=== PATIENT | male | born 1945 | race Caucasian/White ===

== ENCOUNTER 2016-06-12 11:42 | Emergency (ER) | payer MEDICARE ==
[~2016-06-12] VITALS: Ht 200.7 cm; Wt 161.0 kg
[2016-06-12 12:20] LABS: BASOPHILS % (AUTO) 0 % (0-2); EOSINOPHILS # (AUTO) 0.2 10^3uL; EOSINOPHILS % (AUTO) 3 % (0-4); LYMPHOCYTES # (AUTO) 0.7 X10^3; MEAN CORPUSCULAR HEMOGLOBIN 27.7 PG (26.0-34.0); MEAN CORPUSCULAR HGB CONC 32.7 g/dL (31.0-37.0); MEAN CORPUSCULAR VOLUME 85 FL (80-100); MEAN PLATELET VOLUME 9.1 FL (6.0-9.5); MONOCYTES # (AUTO) 0.6 X10^3; MONOCYTES % (AUTO) 7 % (3-11); NEUTROPHILS # (AUTO) 6.7 X10^3; NEUTROPHILS % (AUTO) 81 % (51-67); PLATELET COUNT 196 10^3uL (150-450)
[2016-06-12 12:33] LABS: ALBUMIN 3.8 g/dL (3.4-5.0); ANION GAP 13.5 MEQ/L (3-15); CALCULATED IONIZED CALCIUM 3.5 mg/dL (3.8-4.6); TOTAL PROTEIN 7.6 g/dL (6.4-8.5)
[2016-06-12 13:25] VITALS: BP 130/70
== END 2016-06-12 13:54 | disposition home or self-care (01) ==
LOC: EDUNIT# 11:42 → ED 11:44
DX: J06.9 Acute upper respiratory infection, unspecified (principal)
CPT/HCPCS: 36415; 71020; 80053; 83880; 85025; 86140; 99283; 99284

== ENCOUNTER → 2016-07-16 | Outpatient (REF) | payer MEDICARE ==
[2016-07-16 09:51] LABS: CLARITY,URINE Turbid; COLOR,URINE Orange; GLUCOSE, URINE (UA) Negative (Negative); LEUKOCYTE ESTERASE ,URINE 3+ (Negative); PH,URINE 8.5 (5.0 - 8.0)
[2016-07-16 11:37] LABS: BILIRUBIN,URINE 1+ (Negative); URINE CENTRIFUGED VOLUME 12 mL
[2016-07-16 11:38] LABS: RBC,URINE >100 /HPF
== END ==
LOC: LAB 09:21
PROVIDERS: ATTEND Family Medicine
DX: R82.99 Other abnormal findings in urine (principal)
CPT/HCPCS: 81003; 81015; 87077; 87088; 87186

== ENCOUNTER 2016-07-19 16:04 | Inpatient (IN) | payer MEDICARE ==
[~2016-07-19] VITALS: Ht 200.7 cm; Wt 159.6 kg
[2016-07-19 17:16] LABS: MEAN CORPUSCULAR HEMOGLOBIN 27.5 PG (26.0-34.0); MEAN CORPUSCULAR VOLUME 89 FL (80-100); MEAN PLATELET VOLUME 9.5 FL (6.0-9.5); PLATELET COUNT 209 10^3uL (150-450); WHITE BLOOD COUNT 8.42 10^3uL (4.0-11.0)
--- NOTE | 2016-07-19 17:18 | NUR ---
urinal PLACED FOR 2ND TIME & LEFT IN PLACE. PT STATES HIS BOTTOM "MIGUEL" & ASKS FOR SOMETHING FOR FEVER. PT SHIVERING & SHAKING. DR GUERRERO NOTIFIED. CL
[2016-07-19] MEDS ORDERED: ACETAMINOPHEN 500 MG TAB (TYLENOL) PO ONE (17:20)
[2016-07-19 17:32] LABS: ALBUMIN 3.5 g/dL (3.4-5.0); ANION GAP 14.7 MEQ/L (3-15); CALCULATED IONIZED CALCIUM 3.7 mg/dL (3.8-4.6); TOTAL PROTEIN 7.2 g/dL (6.4-8.5)
[2016-07-19 17:36] LABS: BAND NEUTROPHILS % 7 % (0-6); LYMPHOCYTES # 1.7 #; MONOCYTES # 1.1 #; MONOCYTES % 14 % (3-11); SEGMENTED NEUTROPHILS % 58 % (51-67)
[2016-07-19 17:37] LABS: EOSINOPHILS % 1 % (0-4); RBC MORPH NORMAL (NORMAL); TOTAL CELLS COUNTED 100
[2016-07-19] MEDS ORDERED: cefTRIAXone SODIUM 1,000 MG in SODIUM CHLORIDE 50 ML IV ONE (18:15)
--- NOTE | 2016-07-19 18:27 | NUR ---
TEMP RECHK = 100.9 TYMP. CL
[2016-07-19 18:34] LABS: BILIRUBIN,URINE Negative (Negative); COLOR,URINE Yellow; GLUCOSE, URINE (UA) Negative (Negative); LEUKOCYTE ESTERASE ,URINE 3+ (Negative); PH,URINE 5.5 (5.0 - 8.0); UROBILINOGEN,URINE 0.2 mg/dL (0.2-1.0)
[2016-07-19 18:44] LABS: CLARITY,URINE Slightly Cloudy
[2016-07-19 18:45] LABS: URINE CENTRIFUGED VOLUME 12 mL
--- NOTE | 2016-07-19 19:05 | NUR ---
Patient admitted to room 315 at this time. Is on 5L per OxyMask from ED, able to transfer from Cart to weight chair and bed with much assistance. Relates history to nurse and physician. Will continue to monitor.
[2016-07-19 19:15] VITALS: BP 136/77
--- NOTE | 2016-07-19 20:22 | NUR ---
Pt found lying in bed on 5 l/min Oximask. SPO2 96%, HR 88.
[2016-07-19] MEDS ORDERED: CALCIUM CARBONATE CHEWABLE 300 MG (TUMS) TABLET PO PRN (20:25)
[2016-07-19] MEDS ORDERED: MAG HYDROX/AL HYDROX/SIMETH 200-200-20/5 ML (MAG-AL PLUS) 30 ML UDC PO PRN (20:25)
[2016-07-19] MEDS ORDERED: DOCUSATE SODIUM 100 MG (COLACE) CAP PO PRN (20:25)
[2016-07-19] MEDS ORDERED: DEXTROSE ORAL GEL (GLUTOSE 40%) 15 GM TUBE PO PRN (20:25)
[2016-07-19] MEDS ORDERED: POLYETHYLENE GLYCOL 17 GM (MIRALAX) PACKET PO PRN (20:25)
[2016-07-19] MEDS ORDERED: GLUCAGON EMERGENCY 1 MG/KIT IM PRN (20:25)
[2016-07-19] MEDS ORDERED: DEXTROSE 50% 25 GM/50 ML SYRINGE IV PRN (20:25)
[2016-07-19] MEDS ORDERED: ACETAMINOPHEN 325 MG TAB (TYLENOL) PO PRN (20:25)
[2016-07-19] MEDS ORDERED: MAGNESIUM HYDROXIDE 80MG/ML (MILK OF MAGNESIA) 30 ML UDC PO PRN (20:25)
[2016-07-19] MEDS ORDERED: warFARin 5 MG (COUMADIN) TAB PO SCH (20:30)
[2016-07-19] MEDS ORDERED: BISACODYL 10 MG SUPP (DULCOLAX) PR PRN (20:30)
[2016-07-19 20:34] VITALS: BP 173/71
[2016-07-19] MEDS ORDERED: ALBUTEROL 0.083% NEB SOLUTION 2.5 MG/3 ML VIAL INH PRN (20:45)
[2016-07-19] MEDS: CLOZAPINE PO SCH (21:00)
[2016-07-19] MEDS ORDERED: INSULIN LISPRO 1 UNIT/0.01 ML (HUMALOG) DOSE SC SCH (21:00)
[2016-07-19] MEDS ORDERED: VANCOMYCIN 1,000 MG in SODIUM CHLORIDE 250 ML IV ONE (21:05)
[2016-07-19] MEDS: ALBUTEROL/IPRATROPIUM 3MG-0.5MG/3ML (DUONEB) NEB VIAL INH SCH (21:05)
[2016-07-19] MEDS ORDERED: VANCOMYCIN PHARMACY PROTOCOL IV SCH ×2 (21:05)
[2016-07-19] MEDS ORDERED: VANCOMYCIN 1000 MG VIAL ONE (21:08)
[2016-07-19] MEDS ORDERED: SODIUM CHLORIDE 250 ML ONE (21:08)
--- NOTE | 2016-07-19 21:08 | NUR ---
Pt found on 5 l/min SM while lying in bed. SPO2 96%, HR 101. RR 20 and mildly labored. BS have bilateral upper lobe fine wheezes with rhonchi throughout all lung alvarado. Pt has a strong cough and is able to clear upper airway secretions. Addendum: 07/19/16 at 2118 by Santiago Molina RT Pt still has fine wheezes in upper left lobe post Tx, Rhonchi cleared with strong cough.
--- NOTE | 2016-07-19 22:00 | NUR ---
Dr. Tong notified of critical lab value: INR 5.5. Warfarin held. Buttocks cleaned up and Mepilex placed on open areas on buttocks. Abcess to right gluteal fold cleaned with chlorhexidine and culture obtained, sent to lab. Covered with Mepilex. No needs at this time. Will continue to monitor.
[2016-07-19 23:58] VITALS: BP 119/65
[2016-07-20 04:12] VITALS: BP 123/63
[2016-07-20] MEDS ORDERED: SODIUM CHLORIDE 100 ML ONE (05:10)
[2016-07-20] MEDS ORDERED: PIPERACILLIN/TAZOBACTAM 3.375 GM (ZOSYN) VIAL IV ONE (05:10)
[2016-07-20] MEDS: PIPERACILLIN/TAZOBACTAM 3.375 GM in SODIUM CHLORIDE 100 ML IV SCH ×3 (05:20→21:27)
[2016-07-20 06:20] LABS: BASOPHILS % (AUTO) 1 % (0-2); EOSINOPHILS # (AUTO) 0.2 10^3uL; EOSINOPHILS % (AUTO) 3 % (0-4); LYMPHOCYTES # (AUTO) 1.4 X10^3; MEAN CORPUSCULAR HEMOGLOBIN 27.4 PG (26.0-34.0); MEAN CORPUSCULAR VOLUME 88 FL (80-100); MONOCYTES # (AUTO) 1.1 X10^3; MONOCYTES % (AUTO) 14 % (3-11); NEUTROPHILS # (AUTO) 5.1 X10^3; NEUTROPHILS % (AUTO) 64 % (51-67); PLATELET COUNT 200 10^3uL (150-450); WHITE BLOOD COUNT 7.89 10^3uL (4.0-11.0)
[2016-07-20 06:25] LABS: MEAN CORPUSCULAR HGB CONC 31.2 g/dL (31.0-37.0)
--- NOTE | 2016-07-20 06:28 | NUR ---
Patient rests in bed throughout night without needs. IV running without difficulties. No needs at this time.
[2016-07-20 06:38] LABS: ALBUMIN 3.3 g/dL (3.4-5.0); ANION GAP 8.6 MEQ/L (3-15); PHOSPHORUS 3.2 mg/dL (2.4-4.9)
[2016-07-20 07:41] VITALS: BP 125/64
[2016-07-20] MEDS: ALBUTEROL/IPRATROPIUM 3MG-0.5MG/3ML (DUONEB) NEB VIAL INH SCH ×4 (08:01→20:05)
--- NOTE | 2016-07-20 08:02 | NUR ---
MED REC COMPLETE--current med list obtained from list provided by [facility]
[2016-07-20] MEDS ORDERED: NS FLUSH 3 ML PRN IV (08:10)
--- NOTE | 2016-07-20 08:15 | NUR ---
NUTRITION ASSESSMENT Level 1 Patient: Vlad Benitez Age/Sex: 70/M Date Screened: 07-20-16 Weight: 355.9#/161.8 kg Height: 79 inches Primary Diagnosis: SIRS/sepsis, UTI Diet Order: regular, honey-thick liquids Relevant labs: stool occult blood (-), glucose 166 Food allergies: N Nutrition Assessment Criteria Age over 80: N Body Mass Index (BMI) under 19: N Admission Screening Indicates Risk? 6 points Moderate/High Risk Diagnosis: 3 points TPN or PPN: N NPO or clear liquid diet: N Serum Glucose <70 or >180: N Hgb A1c >6.7: N/A Total: 9 points Risk Screen: __ Patient at low nutritional risk based on available data; reevaluate in 5-7 days __ Patient at moderate nutritional risk based on available data; reevaluate in 3-5 days _X_ Patient at high nutritional risk; complete Nutrition Assessment within 48 hours of admission.
--- NOTE | 2016-07-20 08:15 | NUR ---
Vancomycin Dosing: Pharmacy managed S: SIRS/Sepsis: Attributed to UTI / gluteal fold cellulitis. Cultures pending. NH resident. Treating with Pip/Tazo & Vancomycin. O: 70y/o M, wt = 162 kg, SCr = 1.75 CrCl = 66 ml/min A/P: Vancomycin 1000mg IV initially. Vancomycin 2gm IV q18h with predicted trough of 14.7 mcg/mL for therapeutic goal of 15-20mcg/ml. Trough to be drawn before 5th dose (07-23-16@ 0930). Will monitor and adjust if needed.
[2016-07-20] MEDS ORDERED: PHYTONADIONE 10 MG/ML SC ONE (08:35)
[2016-07-20] MEDS ORDERED: ENOXAPARIN 40 MG/0.4 ML (LOVENOX) SYR SC SCH (09:00)
[2016-07-20] MEDS: NS FLUSH 3 ML DAILY IV SCH (09:00)
[2016-07-20] MEDS: meTOprolol TARTRATE 25 MG (LOPRESSOR) TABLET PO SCH ×2 (09:36→18:12)
[2016-07-20] MEDS: FINASTERIDE (PROSCAR) 5 MG TAB PO SCH (09:36)
[2016-07-20] MEDS: WARFARIN MONITORING XX SCH (09:37)
[2016-07-20] MEDS: PANTOPRAZOLE 40 MG (PROTONIX) TAB PO SCH (09:37)
[2016-07-20] MEDS: BETHANECHOL 25 MG (URECHOLINE) TAB PO SCH ×3 (09:37→18:12)
[2016-07-20] MEDS: TAMSULOSIN 0.4 MG (FLOMAX) CAP PO SCH (09:37)
[2016-07-20] MEDS: VANCOMYCIN 2000 MG in NS IV 480 ML IV SCH (09:43)
[2016-07-20] MEDS: VANCOMYCIN COMPOUNDED BY PHARMACY IV SCH (09:43)
--- NOTE | 2016-07-20 10:15 | NUR ---
O2 sat. has been 96-97% on 5 liters NC. Weaned O2 to 3 liters. Will recheck sat.
--- NOTE | 2016-07-20 10:45 | NUR ---
O2 sat.= 96% on 3 liters NC. Weaned O2 to 2 liters. Will continue to monitor.
--- NOTE | 2016-07-20 11:30 | NUR ---
O2 sat.= 97% on 2 liters NC.
[2016-07-20 11:41] VITALS: BP 116/63
--- NOTE | 2016-07-20 12:15 | NUR ---
Weaned patient to room air. Will recheck sat.
--- NOTE | 2016-07-20 12:40 | NUR ---
O2 sat.= 92% on room air. Instructed patient to call for shortness of breath.
--- NOTE | 2016-07-20 13:48 | NUR ---
NUTRITION ASSESSMENT Level II Patient: Vlad Benitez Age/Sex: 70/M Date Assessed: 07-20-16 ASSESSMENT Pertinent History: Patient admitted with SIRS/sepsis and UTI, and screened at high nutritional risk secondary to skin breakdown and hx. aspiration pneumonia. PMHx includes BPH, GERD, COPD, constipation, schizophrenia, seizure disorder, mild cognitive impairment, stroke, hx falls, ataxia, aspiration pneumonia, and kidney stones. He is disabled due to schizophrenia and cognitive impairment, and lives at [facility]. Skin breakdown noted on buttocks, stage 2 pressure ulcer, as well as necrotic ulcer on right great toe. Pt. has been gaining weight over the past year: 308# in 2015, 353# in 2015, and 354# in 2016. He has a history of needing mechanical soft diet. Meds/Nutrition: Protonix, NS Weight: 355.9#/161.8 kg Height: 79 inches Body Mass Index (BMI): 40.2 [place] Body Weight : 208#/94.5 kg % IBW: 171% GASTROINTESTINAL Appetite: good, eating 100% Diet Order: regular, honey-thick liquids Unintentional loss of >10 lbs. in 3 months: N Difficult to chew/swallow: Yes Diabetes: N Relevant Labs: stool occult blood (-), glucose 166 Calculations for Nutritional Assessment Estimated calorie needs: 22-25 kcals/kg = 3,500 (minus 500 for weight loss) Estimated protein needs: 1.0-1.2 g/kg ABW protein = 111-133 g./day protein DIAGNOSIS 1. Nutrition Diagnosis: Increased protein needs related to skin breakdown and SIRs/sepsis as evidenced by diagnosis and stage 2 PU to buttocks with breakdown on toe. NUTRITIONAL INTERVENTION Goal: Patient will receive adequate nutrition to meet his needs. Plan: Will provide regular diet with HT liquids as ordered, and monitor intake for adequacy. Will alter menus to provide minimum 111 g. protein/day as calculated above, and adjust as needed. Will closely monitor chewing/swallow ability to see if he needs altered texture for solid foods. Will also monitor glucose; noted it was elevated at 166 this morning but pt. does not have diabetes dx. MONITORING & EVALUATION _X_ Monitor patients menu selections _X_ Monitor patients food intake per nursing notes __ Monitor NPO/clear liquid days _X_ Monitor lab values __ Monitor I&O _X_ Other--monitor skin breakdown
[2016-07-20 16:00] VITALS: BP 119/72
--- NOTE | 2016-07-20 16:00 | NUR ---
O2 sat. has remained in the 90's on room air.
--- NOTE | 2016-07-20 17:30 | NUR ---
Yohana WASHINGTON at [facility] reports the patient only wears O2 2 liters at .
--- NOTE | 2016-07-20 18:53 | NUR ---
Patient is able to get up with assist of two but transfers are difficult. He is strong enough to ambulate once on his feet although unsteady. The main difficulty is rising from chair to standing or bed to standing.
--- NOTE | 2016-07-20 20:07 | NUR ---
Pt found sitting in his chair on RA, SPO2 92%, HR 77, RR 18 and non labored. BS essentially clear before and after Duoneb via SVN. Pt wears 2 l/min NC at night which he puts on at 2100 hrs.
[2016-07-20 20:14] VITALS: BP 124/63
--- NOTE | 2016-07-20 20:18 | NUR ---
Pt in bed, placed on 2 l/min NC.
[2016-07-20] MEDS: CLOZAPINE PO SCH (21:28)
[2016-07-21 00:11] VITALS: BP 118/65
[2016-07-21] MEDS: VANCOMYCIN 2000 MG in NS IV 480 ML IV SCH ×2 (03:40→20:56)
[2016-07-21] MEDS: VANCOMYCIN COMPOUNDED BY PHARMACY IV SCH ×2 (03:40→21:18)
[2016-07-21] MEDS: NS FLUSH 10 ML PRN IV (05:37)
[2016-07-21 05:54] VITALS: BP 131/73
[2016-07-21 06:04] LABS: BASOPHILS % (AUTO) 1 % (0-2); EOSINOPHILS # (AUTO) 0.4 10^3uL; EOSINOPHILS % (AUTO) 6 % (0-4); LYMPHOCYTES # (AUTO) 1.8 X10^3; MEAN CORPUSCULAR VOLUME 89 FL (80-100); MEAN PLATELET VOLUME 9.2 FL (6.0-9.5); MONOCYTES # (AUTO) 0.8 X10^3; MONOCYTES % (AUTO) 10 % (3-11); NEUTROPHILS # (AUTO) 4.8 X10^3; NEUTROPHILS % (AUTO) 60 % (51-67); PLATELET COUNT 200 10^3uL (150-450); WHITE BLOOD COUNT 7.91 10^3uL (4.0-11.0)
[2016-07-21 06:28] LABS: MEAN CORPUSCULAR HGB CONC 30.4 g/dL (31.0-37.0)
[2016-07-21] MEDS: PIPERACILLIN/TAZOBACTAM 3.375 GM in SODIUM CHLORIDE 100 ML IV SCH ×3 (06:39→20:56)
[2016-07-21 06:50] LABS: ALBUMIN 3.1 g/dL (3.4-5.0); ANION GAP 11.8 MEQ/L (3-15); PHOSPHORUS 3.5 mg/dL (2.4-4.9)
[2016-07-21] MEDS: ALBUTEROL/IPRATROPIUM 3MG-0.5MG/3ML (DUONEB) NEB VIAL INH SCH ×4 (07:31→20:03)
[2016-07-21 07:42] VITALS: BP 117/59
--- NOTE | 2016-07-21 07:43 | NUR ---
Pt resting in bed with eyes closed. remains on 2L nc. resp even nonlab. NS@100ml/hr infusing concurrent with Zosyn @25ml/hr into 22g LBH without difficulty. Size-guerra mattress in place. Pt calls appropriately at this time for assist in using urinal. bed alarm turned on.
[2016-07-21] MEDS: meTOprolol TARTRATE 25 MG (LOPRESSOR) TABLET PO SCH ×2 (08:38→18:01)
[2016-07-21] MEDS: FINASTERIDE (PROSCAR) 5 MG TAB PO SCH (08:39)
[2016-07-21] MEDS: BETHANECHOL 25 MG (URECHOLINE) TAB PO SCH ×3 (08:39→18:01)
[2016-07-21] MEDS: PANTOPRAZOLE 40 MG (PROTONIX) TAB PO SCH (08:39)
[2016-07-21] MEDS: NS FLUSH 3 ML DAILY IV SCH ×2 (08:41→20:56)
[2016-07-21] MEDS: WARFARIN MONITORING XX SCH (08:41)
[2016-07-21] MEDS: TAMSULOSIN 0.4 MG (FLOMAX) CAP PO SCH (09:54)
--- NOTE | 2016-07-21 10:27 | NUR ---
This nurse attempted a second IV start for Vanco infusion- unsuccessful- will call ICU nurse to look for site. Pt tolerated without c/o.
--- NOTE | 2016-07-21 11:30 | NUR ---
O2 titrated to RA at this time- O2 sats 97%on 2L nc. At MT he wear 2L at noc, RA during day. Will cont to monitor O2 sats. Pilar LANGSTON notified.
[2016-07-21 11:44] VITALS: BP 106/55
--- NOTE | 2016-07-21 12:15 | NUR ---
O2 sats 94% RA. will cont to monitor.
--- NOTE | 2016-07-21 14:30 | NUR ---
Kiki Nash started 2 IVs- 22g Lt wrist. 20g Rt wrist.
--- NOTE | 2016-07-21 14:40 | NUR ---
MULTIDISCIPLINARY MTG/DR. WALTER: Pt. admitted with SIRS/Sepsis, pneumonia and complicated UTI that had been diagnosed prior to hospitalization. Pt. also had cellulitis on the buttocks with an abscess. Pt. is not complaining of a lot of pain. Pt. is receiving broad spectrum antibiotics. Will put Pt. on MRSA isolation precautions due to culture results. Pt. is a resident of [facility]. No discharge needs identified at this time.
[2016-07-21 16:13] VITALS: BP 110/58
--- NOTE | 2016-07-21 18:39 | NUR ---
Pt sitting up in chair, watching tv. Zosyn infusing without difficulty.
--- NOTE | 2016-07-21 19:30 | NUR ---
Pt is resting in recliner watching tv, alert and oriented x3, Resp are even and nonlabored, LCTAB, HRRR, BS are active x 4 quadrants. Pt denies pain or discomfort at this time. SL is patent, no redness, swelling, or s/s of infection noted at this time. Pt continues in isolation precautions for positive staph aureus. Dressing is over abscess to rectum, and stage 2 to coccyx. Call light is in reach, will continue to monitor.
[2016-07-21 19:42] VITALS: BP 117/70
--- NOTE | 2016-07-21 20:08 | NUR ---
Pt found sitting in his chair on RA, SPO2 93%, HR 76, RR 18 and non labored. BS coarse rhonchi throughout all lung alvarado that clear with a coached cough, clear after cough. Duoneb given via SVN/MASK tolerated well with clear BS post Tx.
[2016-07-21] MEDS ORDERED: INSULIN DETEMIR 1 UNIT/0.01 ML (LEVEMIR) DOSE SC ONE (20:54)
[2016-07-21] MEDS: CLOZAPINE PO SCH (20:56)
[2016-07-22 00:16] VITALS: BP 130/68
[2016-07-22 03:44] VITALS: BP 110/70
--- NOTE | 2016-07-22 04:40 | NUR ---
Pt has been resting in bed asleep most of this shift, currently on 2LPM O2 while asleep, call light is in reach, will continue to monitor.
[2016-07-22] MEDS: PIPERACILLIN/TAZOBACTAM 3.375 GM in SODIUM CHLORIDE 100 ML IV SCH (05:56)
[2016-07-22 06:14] LABS: ALBUMIN 3.2 g/dL (3.4-5.0); ANION GAP 10.8 MEQ/L (3-15); MAGNESIUM* 2.1 mg/dL (1.6-2.3); PHOSPHORUS 3.2 mg/dL (2.4-4.9)
--- NOTE | 2016-07-22 07:35 | NUR ---
O2 titrated to RA- Sats 92% RA. Resp even, nonlab. Pt up in chair for bfst meal. SL x2 intact. Zosyn infusing as ordered. Call light within reach- calls appropriately for assist- has only needed 1 assist overnight and this AM. Will cont to monitor patient.
[2016-07-22 07:38] VITALS: BP 124/64
[2016-07-22] MEDS: ALBUTEROL/IPRATROPIUM 3MG-0.5MG/3ML (DUONEB) NEB VIAL INH SCH ×4 (07:40→20:27)
[2016-07-22] MEDS: FINASTERIDE (PROSCAR) 5 MG TAB PO SCH (08:36)
[2016-07-22] MEDS: PANTOPRAZOLE 40 MG (PROTONIX) TAB PO SCH (08:36)
[2016-07-22] MEDS: BETHANECHOL 25 MG (URECHOLINE) TAB PO SCH ×3 (08:36→16:57)
[2016-07-22] MEDS: meTOprolol TARTRATE 25 MG (LOPRESSOR) TABLET PO SCH ×2 (08:36→16:57)
[2016-07-22] MEDS: WARFARIN MONITORING XX SCH (08:37)
[2016-07-22] MEDS: TAMSULOSIN 0.4 MG (FLOMAX) CAP PO SCH (09:26)
--- NOTE | 2016-07-22 10:00 | NUR ---
Pt ambulated to shower from room, assisted x1 in shower, then brought back to room via shower chair. IV SL at this time. IV SL x2 in place.
[2016-07-22 11:21] VITALS: BP 128/62
[2016-07-22] MEDS: VANCOMYCIN 2000 MG in NS IV 480 ML IV SCH (15:56)
[2016-07-22] MEDS: VANCOMYCIN COMPOUNDED BY PHARMACY IV SCH (16:00)
[2016-07-22 16:15] VITALS: BP 119/60
--- NOTE | 2016-07-22 16:17 | NUR ---
Brennan Valdovinos CRNA at bedside for PICC line placement.
--- NOTE | 2016-07-22 17:22 | NUR ---
Exp. crackles bilaterally, good cough to clear upper airway. O2 off during the day, 94%.
[2016-07-22 19:56] VITALS: BP 117/70
--- NOTE | 2016-07-22 20:29 | NUR ---
Pt found reclining in his chair, SPO2 93% on RA, HR 72, RR 16 and non labored. Pt has coarse crackles that clear with coached cough, otherwise clear BS before and after Duoneb via SVN. O2 @ 2 l/min NC set up for HS.
[2016-07-22] MEDS ORDERED: cefTRIAXone SODIUM 1,000 MG in SODIUM CHLORIDE 50 ML IV SCH (21:00)
[2016-07-22] MEDS: CLOZAPINE PO SCH (21:11)
[2016-07-22] MEDS ORDERED: SODIUM CHLORIDE 250 ML ONE (21:18)
[2016-07-23 00:20] VITALS: BP 128/62
[2016-07-23 04:00] VITALS: BP 120/68
--- NOTE | 2016-07-23 04:00 | NUR ---
Pt is resting in bed asleep, does not appear in pain or discomfort at this time, call light is in reach, will continue to monitor.
[2016-07-23 08:14] VITALS: BP 126/62
[2016-07-23] MEDS: ALBUTEROL/IPRATROPIUM 3MG-0.5MG/3ML (DUONEB) NEB VIAL INH SCH ×2 (08:40→12:24)
[2016-07-23] MEDS: meTOprolol TARTRATE 25 MG (LOPRESSOR) TABLET PO SCH (08:55)
[2016-07-23] MEDS: NS FLUSH 3 ML DAILY IV SCH ×2 (08:56→10:15)
[2016-07-23] MEDS: PANTOPRAZOLE 40 MG (PROTONIX) TAB PO SCH (08:56)
[2016-07-23] MEDS: FINASTERIDE (PROSCAR) 5 MG TAB PO SCH (08:56)
[2016-07-23] MEDS: BETHANECHOL 25 MG (URECHOLINE) TAB PO SCH ×2 (08:56→13:01)
[2016-07-23] MEDS ORDERED: cefTRIAXone 1 GM (ROCEPHIN) VIAL IM SCH (09:00)
[2016-07-23] MEDS: WARFARIN MONITORING XX SCH (09:00)
[2016-07-23] MEDS: VANCOMYCIN 2000 MG in NS IV 480 ML IV SCH (10:14)
[2016-07-23] MEDS: NS FLUSH 10 ML PRN IV (10:14)
[2016-07-23] MEDS: TAMSULOSIN 0.4 MG (FLOMAX) CAP PO SCH (10:14)
[2016-07-23] MEDS: VANCOMYCIN COMPOUNDED BY PHARMACY IV SCH (10:25)
[2016-07-23 11:52] VITALS: BP 122/62
--- NOTE | 2016-07-24 07:00 | NUR ---
PT UP IN RECLINER CHAIR, FEET ELEV, RESTING WELL WITH EYES CLOSED, RESP REG/NONLABORED, CALL LIGHT IN REACH.
--- NOTE | 2016-07-24 10:30 | NUR ---
PT HAS TAKEN PO MEDS WITHOUT PROBLEMS SWALLOWING, HAS BEEN ALERT & APPROPRIATE RESPONSIVE TO THIS NURSE. IVL X2 INTACT, #22 IN LEFT WRIST, #20 IN RIGHT WRIST, BOTH ARE CLEAR & WITHOUT REDNESS/EDEMA, VANCO INFUSING IN R WRIST. Addendum: 07/24/16 at 1129 by Lawanda Good RN WRONG CHART
== END 2016-07-23 13:00 | disposition swing bed (61) | DRG 871 ==
LOC: ED 16:06 → MED/SURG 18:36
PROVIDERS: ADMIT Internal Medicine; ATTEND Internal Medicine
DX: A41.9 Sepsis, unspecified organism (principal); J15.212 Pneumonia due to Methicillin resistant Staphylococcus aureus; N39.0 Urinary tract infection, site not specified; L02.31 Cutaneous abscess of buttock; N17.9 Acute kidney failure, unspecified; D68.32 Hemorrhagic disorder due to extrinsic circulating anticoagulants; J44.0 Chronic obstructive pulmonary disease with (acute) lower respiratory infection; K92.1 Melena; E86.0 Dehydration; R33.8 Other retention of urine; I10 Essential (primary) hypertension; T45.515A Adverse effect of anticoagulants, initial encounter; Z79.01 Long term (current) use of anticoagulants; Z86.711 Personal history of pulmonary embolism
CPT/HCPCS: 36415; 71020; 80053; 80069; 80202; 81003; 81015; 83605; 83690; 83735; 85025; 85610; 86140; 87040; 87070; 87088; 87147; 87186; 87205; 93922; 94640; 94760; 96361; 96365; 99282; 99285

== ENCOUNTER 2016-07-23 13:05 | Inpatient (IN) | payer MEDICARE ==
--- NOTE | 2016-07-23 13:15 | NUR ---
PT'S STATUS CHANGED TO SWB, PT IS ALERT/ORIENT, WEAK BUT ABLE TO TRANSFER WITH MOD ASSIST X1, SKIN PALE, W/D, LSCTA, HEART REGULAR, 3+ EDEMA BILAT LOWER EXT FROM TOES TO KNEES, TEDS ON AT THIS TIME. PT USES CALL LIGHT FOR ASSIST. PT INCONT OF URINE. PT REPORTS NO BM YESTERDAY OR TODAY, BOWEL SOUNDS PRESENT.
[2016-07-23] MEDS ORDERED: POLYETHYLENE GLYCOL 17 GM (MIRALAX) PACKET PO PRN (13:35)
[2016-07-23] MEDS ORDERED: MAG HYDROX/AL HYDROX/SIMETH 200-200-20/5 ML (MAG-AL PLUS) 30 ML UDC PO PRN (13:35)
[2016-07-23] MEDS ORDERED: ACETAMINOPHEN 325 MG TAB (TYLENOL) PO PRN (13:35)
[2016-07-23] MEDS ORDERED: MAGNESIUM HYDROXIDE 80MG/ML (MILK OF MAGNESIA) 30 ML UDC PO PRN (13:35)
[2016-07-23] MEDS ORDERED: VANCOMYCIN PHARMACY PROTOCOL IV SCH (13:35)
[2016-07-23] MEDS ORDERED: BISACODYL 10 MG SUPP (DULCOLAX) PR PRN (13:35)
[2016-07-23] MEDS ORDERED: SODIUM CHLORIDE FLUSH 10 ML SYR IV PRN (13:35)
[2016-07-23] MEDS ORDERED: CALCIUM CARBONATE CHEWABLE 300 MG (TUMS) TABLET PO PRN (13:35)
[2016-07-23] MEDS ORDERED: ALBUTEROL 0.083% NEB SOLUTION 2.5 MG/3 ML VIAL INH PRN (13:35)
[2016-07-23] MEDS ORDERED: GLUCAGON EMERGENCY 1 MG/KIT IM PRN (13:35)
--- NOTE | 2016-07-23 15:30 | NUR ---
Vancomycin Dosing: Pharmacy managed S: SIRS/Sepsis: Attributed to UTI / gluteal fold cellulitis. NH resident. O: 70y/o M, wt = 162 kg, SCr = 1.47 CrCl = 79 ml/min, CRP 8.7 mg/dL, sputum cx and wound cx positive for MRSA, blood cx negative to date, vanco trough 17.7 mcg/mL A/P: Contine vancomycin 2gm IV q18h to maintain therapeutic goal of 15-20mcg/ml. Next trough to be drawn before 07-26-16@ 0930. Will monitor and adjust if needed.
[2016-07-23] MEDS: ALBUTEROL/IPRATROPIUM 3MG-0.5MG/3ML (DUONEB) NEB VIAL INH SCH ×2 (16:00→19:35)
[2016-07-23] MEDS: warFARin 5 MG (COUMADIN) TAB PO SCH (16:26)
[2016-07-23] MEDS: meTOprolol TARTRATE 25 MG (LOPRESSOR) TABLET PO SCH (17:53)
[2016-07-23] MEDS: BETHANECHOL 25 MG (URECHOLINE) TAB PO SCH (17:53)
--- NOTE | 2016-07-23 18:20 | NUR ---
PT STS HE DID HAVE A BM YESTERDAY, REPORTED TO THIS NURSE EARLIER HE HAD NOT HAD A BM FOR 2 DAY, MRAIANA PROVIDED.
--- NOTE | 2016-07-23 19:15 | NUR ---
Pt is sitting up in recliner watching tv and visiting with his sister. Alert and oriented x 4, Resp are even and nonlabored, LCTAB, HRRR, BS are active x 4 quadrants. Pt is senior care for infection to right rectal abscess. SL to Right Wrist and Left Wrist are patent, no redness, swelling, or s/s of infection noted at this time. Denies pain or discomfort at this time. Call light is in reach, will continue to monitor.
--- NOTE | 2016-07-23 19:37 | NUR ---
Pt found sitting in his chair on RA, SPO2 89%, HR 81, RR 81. BS clear before and after Duoneb via SVN. Placed on 2 l/min NC for noc.
[2016-07-23] MEDS: HOME MEDICATION PO SCH (20:45)
[2016-07-23] MEDS: cefTRIAXone SODIUM 1,000 MG in SODIUM CHLORIDE 50 ML IV SCH (20:45)
[2016-07-24 00:35] VITALS: BP 119/64
--- NOTE | 2016-07-24 04:15 | NUR ---
Pt is resting in bed asleep, does not appear in pain or discomfort at this time, call light is in reach, will continue to monitor.
[2016-07-24] MEDS: NS IV SCH ×2 (04:58→20:42)
[2016-07-24] MEDS: VANCOMYCIN IV SCH ×2 (04:58→20:42)
[2016-07-24] MEDS: COMPOUNDED BY PHARMACY IV SCH ×2 (04:58→21:19)
[2016-07-24 08:00] VITALS: BP 122/64
--- NOTE | 2016-07-24 08:30 | NUR ---
PT RETURNS FROM SHOWER, BOTTOM CLEAN, DECUB NOTED ON L BUTTOCK, UNABLE TO VISUALIZE ABSCESS, SQUARE MEPILEX APPLIED TO GLUTEAL CREASE, SMALL MEPILEX APPLIED TO R BUTTOCK. PT TO RECLINER CHAIR FOR MORNING MEAL.
--- NOTE | 2016-07-24 08:45 | NUR ---
PT NOTED TO BE COUGHING FREQUENTLY, REPORTS HE SWALLOWED A BITE OF EGG WRONG, WILL MONITOR
[2016-07-24] MEDS: BETHANECHOL 25 MG (URECHOLINE) TAB PO SCH ×3 (08:53→17:31)
[2016-07-24] MEDS: meTOprolol TARTRATE 25 MG (LOPRESSOR) TABLET PO SCH ×2 (08:53→17:31)
[2016-07-24] MEDS: FINASTERIDE (PROSCAR) 5 MG TAB PO SCH (08:54)
[2016-07-24] MEDS: PANTOPRAZOLE 40 MG (PROTONIX) TAB PO SCH (08:54)
[2016-07-24] MEDS: WARFARIN MONITORING XX SCH (08:55)
[2016-07-24] MEDS: ALBUTEROL/IPRATROPIUM 3MG-0.5MG/3ML (DUONEB) NEB VIAL INH SCH ×4 (09:10→20:15)
--- NOTE | 2016-07-24 10:00 | NUR ---
PT RESTING IN RECLINER, NO FURTHER COUGHING, TAKES PO MED WELL. CALL LIGHT IN REACH.
[2016-07-24] MEDS: TAMSULOSIN 0.4 MG (FLOMAX) CAP PO SCH (10:50)
--- NOTE | 2016-07-24 12:30 | NUR ---
PT FEEDING SELF IN RECLINER CHAIR, THIS NURSE ASSISTED WITH CUTTING MEAT, OTHERWISE PT IS INDEPENDENT WITH FEEDING. DENIES C/O OR NEEDS.
--- NOTE | 2016-07-24 13:45 | NUR ---
PT ASSISTED X2 MAX ASSIST TO BED; PT NEEDS ASSIST WITH [id number], ABLE TO TAKE SHUFFLE STEPS TO BED WITH WALKER/GAIT BELT/NURSE ASSIST X2. PT'S GAIT FEELS UNSTEADY. SR UP, CALL LIGHT IN REACH.
--- NOTE | 2016-07-24 17:00 | NUR ---
PT UP TO CHAIR FOR MIRANDA MEAL, PT INCONT OF LG AMOUNT OF URINE, SKIN WET, THIS NURSE CONCERNED ABOUT INTEGRITY OF SKIN WITH CONSTANT MOISTURE PRESENT, PT'S THIGHS ARE TIGHTLY TOGETHER & IT IS DIFFICULT WITH PT EITHER LYING OR STANDING TO THOROUGHLY ASSESS PERINEAL AREA FOR SKIN ISSUES, SKIN BARRIER APPLIED THOROUGHLY POSSIBLE, UNABLE TO SEE ANY ABSESS AT GLUTEAL FOLD REPORTED BY NURSE REPORT, ROUNDED LINEAR LINE NOTED ON RIGHT, WHICH APPEARS HEALED, NO DRAINAGE NOTED.
[2016-07-24] MEDS: warFARin 5 MG (COUMADIN) TAB PO SCH (17:32)
--- NOTE | 2016-07-24 19:15 | NUR ---
Pt is sitting up in recliner watching tv. Alert and oriented x 4, Resp are even and nonlabored, LCTAB, HRRR, BS are active x 4 quadrants. Pt is snf for infection to right rectal abscess. SL to Right Wrist and Left Wrist are patent, no redness, swelling, or s/s of infection noted at this time. Denies pain or discomfort at this time. Call light is in reach, will continue to monitor.
--- NOTE | 2016-07-24 20:20 | NUR ---
Placed pt on 2L NC post breathing tx, per order, pt SPO2 95% on room air. Pt is sleeping, does not appear to be in any distress.
[2016-07-24] MEDS: HOME MEDICATION PO SCH (20:41)
[2016-07-24] MEDS: cefTRIAXone SODIUM 1,000 MG in SODIUM CHLORIDE 50 ML IV SCH (20:42)
[2016-07-25 00:02] VITALS: BP 130/70
--- NOTE | 2016-07-25 03:45 | NUR ---
Pt is resting in bed asleep, does not appear in pain or discomfort at this time, call light is in reach, will continue to monitor.
[2016-07-25 06:04] LABS: BASOPHILS % (AUTO) 0 % (0-2); EOSINOPHILS # (AUTO) 0.4 10^3uL; EOSINOPHILS % (AUTO) 3 % (0-4); LYMPHOCYTES # (AUTO) 2.2 X10^3; MEAN CORPUSCULAR VOLUME 88 FL (80-100); MEAN PLATELET VOLUME 9.2 FL (6.0-9.5); MONOCYTES # (AUTO) 1.2 X10^3; MONOCYTES % (AUTO) 9 % (3-11); NEUTROPHILS # (AUTO) 8.5 X10^3; NEUTROPHILS % (AUTO) 69 % (51-67); PLATELET COUNT 224 10^3uL (150-450); WHITE BLOOD COUNT 12.36 10^3uL (4.0-11.0)
[2016-07-25 06:06] LABS: MEAN CORPUSCULAR HEMOGLOBIN 26.9 PG (26.0-34.0); MEAN CORPUSCULAR HGB CONC 30.7 g/dL (31.0-37.0)
[2016-07-25 06:28] LABS: ALBUMIN 2.9 g/dL (3.4-5.0); ANION GAP 13.1 MEQ/L (3-15); TOTAL PROTEIN 6.4 g/dL (6.4-8.5)
[2016-07-25] MEDS: ALBUTEROL/IPRATROPIUM 3MG-0.5MG/3ML (DUONEB) NEB VIAL INH SCH ×4 (08:44→20:11)
[2016-07-25 08:50] VITALS: BP 110/64
[2016-07-25] MEDS: FINASTERIDE (PROSCAR) 5 MG TAB PO SCH (09:50)
[2016-07-25] MEDS: PANTOPRAZOLE 40 MG (PROTONIX) TAB PO SCH (09:50)
[2016-07-25] MEDS: DOCUSATE SODIUM 100 MG (COLACE) CAP PO PRN (09:50)
[2016-07-25] MEDS: meTOprolol TARTRATE 25 MG (LOPRESSOR) TABLET PO SCH ×2 (09:50→18:08)
[2016-07-25] MEDS: BETHANECHOL 25 MG (URECHOLINE) TAB PO SCH ×3 (09:50→18:08)
[2016-07-25] MEDS: TAMSULOSIN 0.4 MG (FLOMAX) CAP PO SCH (09:50)
[2016-07-25] MEDS: WARFARIN MONITORING XX SCH (09:51)
--- NOTE | 2016-07-25 10:07 | NUR ---
Nutrition Follow Up: Patient is eating 100% at most meals; his diet on skilled care continues as Regular with honey-thick liquids. Weight today: 347.1#/157.8 kg--this is down 8.8# in the past 5 days Labs: glucose 135 1. No changes recommended at this time; continue regular diet with thickened liquids per physician order. Will monitor intake for adequacy and reassess as needed.
--- NOTE | 2016-07-25 12:00 | NUR ---
Mepilex dressings changed on buttocks.
--- NOTE | 2016-07-25 12:47 | NUR ---
MULTIDISCIPLINARY MTG/DR. ROSSI: Pt. admitted to swing bed on Monday. Pt. receiving IV antibiotics. He has received 7 days so far. Will stop the Rocephin. Pt. has been up walking with PT. No discharge needs identified at this time.
[2016-07-25 16:06] VITALS: BP 135/68
[2016-07-25] MEDS: SODIUM CHLORIDE FLUSH 3 ML SYR IV PRN (16:44)
[2016-07-25] MEDS: COMPOUNDED BY PHARMACY IV SCH (16:44)
[2016-07-25] MEDS: VANCOMYCIN IV SCH (16:44)
[2016-07-25] MEDS: NS IV SCH (16:44)
[2016-07-25] MEDS ORDERED: warFARin 5 MG (COUMADIN) TAB PO SCH (17:00)
[2016-07-25] MEDS: warFARin 5 MG (COUMADIN) TAB PO SCH (18:08)
--- NOTE | 2016-07-25 18:22 | NUR ---
Patient's endurance with walking has improved since last week but he continues to have significant difficulty rising up from a seated position. He is cooperative with trying new activities and with attempting to increase exercises with PT. He has remained on room air all day.
--- NOTE | 2016-07-25 19:52 | NUR ---
Tele-hospitalist notified of redness and excoriation to pt's groin. Nystatin powder ordered.
--- NOTE | 2016-07-25 20:13 | NUR ---
Pt found lying in bed on RA, SPO2 92%, HR 82, RR 14 and non labored. BS clear before and after Duoneb via SVN. Placed on 2 l/min NC equal to Pt's home use.
[2016-07-25] MEDS: NYSTATIN POWDER 100,000 UNITS 15 GM BTL TOP SCH (20:18)
[2016-07-25] MEDS: HOME MEDICATION PO SCH (20:18)
[2016-07-25] MEDS: cefTRIAXone SODIUM 1,000 MG in SODIUM CHLORIDE 50 ML IV SCH (20:18)
[2016-07-25 20:35] VITALS: BP 141/78
--- NOTE | 2016-07-26 06:07 | NUR ---
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 Pt rests without complaints. Up to the chair this morning. Denies pain. Cont on HS oxygen at 2L. SL x2 intact.
[2016-07-26] MEDS: ALBUTEROL/IPRATROPIUM 3MG-0.5MG/3ML (DUONEB) NEB VIAL INH SCH ×4 (06:22→20:00)
--- NOTE | 2016-07-26 06:25 | NUR ---
Pt found sleeping in his recliner, SPO2 94% on 2 l/min NC, HR 79, RR 14 and non labored with clear BS before and after Duoneb via SVN MASK. Pt left on 2 l/min NC per noc use at this time due to his desire to continue sleeping.
[2016-07-26 08:10] VITALS: BP 134/72
[2016-07-26] MEDS: meTOprolol TARTRATE 25 MG (LOPRESSOR) TABLET PO SCH ×2 (09:42→17:49)
[2016-07-26] MEDS: FINASTERIDE (PROSCAR) 5 MG TAB PO SCH (09:42)
[2016-07-26] MEDS: TAMSULOSIN 0.4 MG (FLOMAX) CAP PO SCH (09:42)
[2016-07-26] MEDS: PANTOPRAZOLE 40 MG (PROTONIX) TAB PO SCH (09:42)
[2016-07-26] MEDS: DOCUSATE SODIUM 100 MG (COLACE) CAP PO PRN (09:42)
[2016-07-26] MEDS: BETHANECHOL 25 MG (URECHOLINE) TAB PO SCH ×3 (09:42→17:49)
[2016-07-26] MEDS: WARFARIN MONITORING XX SCH (09:43)
[2016-07-26] MEDS: NYSTATIN POWDER 100,000 UNITS 15 GM BTL TOP SCH ×4 (09:43→21:29)
--- NOTE | 2016-07-26 11:11 | NUR ---
Vancomycin Dosing: Pharmacy managed S/O: 70y/o M, wt = 158 kg, SCr = 1.27 CrCl = 90 ml/min, sputum cx and wound cx positive for MRSA, blood cx negative to date, vanco trough 19.3 mcg/mL on 07-26-16. trough drawn at 17 hrs, adjusted tr at 18 hrs = 17.7. A/P: Continue vancomycin 2gm IV q18h to maintain therapeutic goal of 15-20mcg/ml. Next trough to be drawn before 07-29-16 dose. Will monitor and adjust if needed.
[2016-07-26] MEDS: SODIUM CHLORIDE FLUSH 3 ML SYR IV PRN (12:06)
[2016-07-26] MEDS: VANCOMYCIN IV SCH (12:07)
[2016-07-26] MEDS: COMPOUNDED BY PHARMACY IV SCH (12:07)
[2016-07-26] MEDS: NS IV SCH (12:07)
[2016-07-26 15:51] VITALS: BP 128/76
[2016-07-26] MEDS: warFARin 5 MG (COUMADIN) TAB PO SCH (17:49)
--- NOTE | 2016-07-26 19:01 | NUR ---
Patient was able to get out of bed with less assistance then last week. Rising from a seated position to his feet still remains his most difficult task. Mepilex on buttocks reapplied- this area continues to be red and open (stage 2) with no drainage.
--- NOTE | 2016-07-26 19:42 | NUR ---
Pt is sitting up in recliner watching tv and visiting with his sister. Alert and oriented x 4, Resp are even and nonlabored, LCTAB, HRRR, BS are active x 4 quadrants. Pt is longterm for infection to right rectal abscess. SL to Right Wrist and Left Wrist are patent, no redness, swelling, or s/s of infection noted at this time. Denies pain or discomfort at this time. Call light is in reach, will continue to monitor.
--- NOTE | 2016-07-26 20:03 | NUR ---
Pt found reclining in his chair, SPO2 91% on RA, HR 71, RR 14 and non labored. BS clear before and after Duoneb via SVN/MASK. Placed on 2 l/min NC per home use at [facility].
[2016-07-26 20:04] VITALS: BP 140/79
[2016-07-26] MEDS: HOME MEDICATION PO SCH (21:29)
[2016-07-26] MEDS: cefTRIAXone SODIUM 1,000 MG in SODIUM CHLORIDE 50 ML IV SCH (21:30)
--- NOTE | 2016-07-27 03:33 | NUR ---
Pt is resting in bed asleep, does not appear in pain or discomfort at this time, call light is in reach, will continue to monitor.
[2016-07-27] MEDS: COMPOUNDED BY PHARMACY IV SCH (04:52)
[2016-07-27] MEDS: NS IV SCH (04:52)
[2016-07-27] MEDS: VANCOMYCIN IV SCH (04:52)
[2016-07-27 08:00] VITALS: BP 140/70
[2016-07-27] MEDS: WARFARIN MONITORING XX SCH (08:31)
[2016-07-27] MEDS: TAMSULOSIN 0.4 MG (FLOMAX) CAP PO SCH (08:38)
[2016-07-27] MEDS: PANTOPRAZOLE 40 MG (PROTONIX) TAB PO SCH (08:38)
[2016-07-27] MEDS: meTOprolol TARTRATE 25 MG (LOPRESSOR) TABLET PO SCH ×2 (08:38→17:21)
[2016-07-27] MEDS: FINASTERIDE (PROSCAR) 5 MG TAB PO SCH (08:38)
[2016-07-27] MEDS: BETHANECHOL 25 MG (URECHOLINE) TAB PO SCH ×3 (08:39→17:21)
--- NOTE | 2016-07-27 08:50 | NUR ---
Pt sitting in chair, alert & oriented, speech clear. Lungs clear. Denies pain. Takes AM meds without difficulty. Call light in reach. Will round frequently for cares.
[2016-07-27 09:24] LABS: BASOPHILS % (AUTO) 1 % (0-2); EOSINOPHILS # (AUTO) 0.4 10^3uL; EOSINOPHILS % (AUTO) 4 % (0-4); MEAN CORPUSCULAR HEMOGLOBIN 27.4 PG (26.0-34.0); MEAN CORPUSCULAR VOLUME 89 FL (80-100); MEAN PLATELET VOLUME 9.3 FL (6.0-9.5); MONOCYTES # (AUTO) 0.9 X10^3; MONOCYTES % (AUTO) 9 % (3-11); NEUTROPHILS # (AUTO) 6.4 X10^3; NEUTROPHILS % (AUTO) 63 % (51-67); PLATELET COUNT 242 10^3uL (150-450); WHITE BLOOD COUNT 10.24 10^3uL (4.0-11.0)
[2016-07-27 09:25] LABS: MEAN CORPUSCULAR HGB CONC 30.7 g/dL (31.0-37.0)
[2016-07-27 10:06] LABS: ANION GAP 12.1 MEQ/L (3-15)
[2016-07-27] MEDS: ALBUTEROL/IPRATROPIUM 3MG-0.5MG/3ML (DUONEB) NEB VIAL INH SCH ×4 (10:22→20:03)
--- NOTE | 2016-07-27 10:38 | NUR ---
Pt. up in chair, has been working with PT and been to shower. O2 sat's 92% on room air, BS are diminished, ess. clear, no coughing.
[2016-07-27] MEDS: SULFAMETHOXAZOLE/TRIMETHOPRIM 800-160 MG (SEPTRA DS) TAB PO SCH ×2 (12:22→20:26)
[2016-07-27] MEDS: NYSTATIN POWDER 100,000 UNITS 15 GM BTL TOP SCH ×4 (13:00→20:27)
[2016-07-27 16:00] VITALS: BP 130/60
[2016-07-27] MEDS: warFARin 5 MG (COUMADIN) TAB PO SCH (17:21)
--- NOTE | 2016-07-27 19:14 | NUR ---
Pt is sitting up in recliner working on a crossword puzzle and watching tv. Alert and oriented x 4, Resp are even and nonlabored, LCTAB, HRRR, BS are active x 4 quadrants. Pt denies pain or discomfort at this time. SL to right and left wrist are patent, no redness, swelling, or s/s of infection noted at this time. Pt continues on contact and fall precautions, currently sitting up in recliner with tabs alarm on, pt does use call light appropriately. Denies needs at this time. Will continue to monitor.
--- NOTE | 2016-07-27 20:05 | NUR ---
Pt found lying in bed on RA, SPO2 92%, HR 79, RR 14 and non labored with clear BS before and after Duoneb via SVN/MASK. Placed on 2 l/min NC per home noc use.
[2016-07-27] MEDS: HOME MEDICATION PO SCH (20:26)
--- NOTE | 2016-07-28 04:07 | NUR ---
Pt has been repositioned every 2hrs and checked and changed, pt is currently resting in bed asleep, does not appear in pain or discomfort at this time. Will continue to monitor.
[2016-07-28 05:30] LABS: BASOPHILS % (AUTO) 0 % (0-2); EOSINOPHILS # (AUTO) 0.3 10^3uL; EOSINOPHILS % (AUTO) 4 % (0-4); LYMPHOCYTES # (AUTO) 2.1 X10^3; MEAN CORPUSCULAR VOLUME 88 FL (80-100); MONOCYTES % (AUTO) 12 % (3-11); NEUTROPHILS # (AUTO) 5.5 X10^3; NEUTROPHILS % (AUTO) 61 % (51-67); PLATELET COUNT 250 10^3uL (150-450); WHITE BLOOD COUNT 9.05 10^3uL (4.0-11.0)
[2016-07-28 05:36] LABS: MEAN CORPUSCULAR HGB CONC 30.6 g/dL (31.0-37.0)
[2016-07-28 05:45] LABS: ANION GAP 9.8 MEQ/L (3-15)
[2016-07-28 08:00] VITALS: BP 130/62
[2016-07-28] MEDS: PANTOPRAZOLE 40 MG (PROTONIX) TAB PO SCH (09:23)
[2016-07-28] MEDS: meTOprolol TARTRATE 25 MG (LOPRESSOR) TABLET PO SCH ×2 (09:23→17:39)
[2016-07-28] MEDS: SULFAMETHOXAZOLE/TRIMETHOPRIM 800-160 MG (SEPTRA DS) TAB PO SCH ×2 (09:23→20:29)
[2016-07-28] MEDS: FINASTERIDE (PROSCAR) 5 MG TAB PO SCH (09:23)
[2016-07-28] MEDS: BETHANECHOL 25 MG (URECHOLINE) TAB PO SCH ×3 (09:23→17:39)
[2016-07-28] MEDS: NYSTATIN POWDER 100,000 UNITS 15 GM BTL TOP SCH ×4 (09:27→20:29)
[2016-07-28] MEDS: WARFARIN MONITORING XX SCH (09:27)
[2016-07-28] MEDS: ALBUTEROL/IPRATROPIUM 3MG-0.5MG/3ML (DUONEB) NEB VIAL INH SCH ×3 (09:53→20:15)
[2016-07-28] MEDS: TAMSULOSIN 0.4 MG (FLOMAX) CAP PO SCH (11:21)
--- NOTE | 2016-07-28 13:15 | NUR ---
Received report from Nicole Michaels RN. Assumed patient care.
--- NOTE | 2016-07-28 13:30 | NUR ---
MULTIDISCIPLINARY MTG/DR. ELKINS: Pt. abscess is improving. Pt. is able to get up better and is working with PT. Pt. was switched to oral antibiotics yesterday. Pt. could possibly discharge on Monday. SW updated [facility] and informed them of his possible discharge. No discharge needs identified at this time. Addendum: 07/28/16 at 1405 by Elba BYNUM [facility] upon discharge.
--- NOTE | 2016-07-28 13:31 | NUR ---
Patient has called appropriately all shift. He is able to rise up from the sitting position with assist of one today. Denies pain.
--- NOTE | 2016-07-28 14:17 | NUR ---
Room air, 92%, ash. tx's well today. Good cough, prod. swallowed.
[2016-07-28] MEDS: warFARin 5 MG (COUMADIN) TAB PO SCH (17:39)
[2016-07-28 20:15] VITALS: BP 130/68
--- NOTE | 2016-07-28 20:17 | NUR ---
Pt found on RA, SPO2 92%, HR 77, RR 16 and non labored with rhonchi that clear with a cough, otherwise clear BS.
--- NOTE | 2016-07-28 20:18 | NUR ---
Placed on 2 l/min NC per noc use
[2016-07-28] MEDS: HOME MEDICATION PO SCH (20:29)
--- NOTE | 2016-07-29 06:10 | NUR ---
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 Pt rests w/o complaints. Gets up with staff assist x1 and walker. SL x2 intact. No needs at this time.
[2016-07-29 06:36] LABS: BASOPHILS % (AUTO) 0 % (0-2); EOSINOPHILS # (AUTO) 0.2 10^3uL; EOSINOPHILS % (AUTO) 3 % (0-4); LYMPHOCYTES # (AUTO) 2.1 X10^3; MEAN CORPUSCULAR HEMOGLOBIN 27.7 PG (26.0-34.0); MEAN CORPUSCULAR VOLUME 89 FL (80-100); MEAN PLATELET VOLUME 9.4 FL (6.0-9.5); MONOCYTES % (AUTO) 11 % (3-11); NEUTROPHILS # (AUTO) 5.7 X10^3; NEUTROPHILS % (AUTO) 62 % (51-67); PLATELET COUNT 263 10^3uL (150-450); WHITE BLOOD COUNT 9.19 10^3uL (4.0-11.0)
--- NOTE | 2016-07-29 06:58 | NUR ---
Received report from Lexi Barth RN. Assumed patient care. Patient is up at bedside in recliner with television on. Patient is awake and alert x3. Patient denies needs .
[2016-07-29 06:59] LABS: ANION GAP 12.1 MEQ/L (3-15)
[2016-07-29 07:52] VITALS: BP 142/70
[2016-07-29] MEDS: WARFARIN MONITORING XX SCH (09:00)
[2016-07-29] MEDS: TAMSULOSIN 0.4 MG (FLOMAX) CAP PO SCH (09:19)
[2016-07-29] MEDS: PANTOPRAZOLE 40 MG (PROTONIX) TAB PO SCH (09:19)
[2016-07-29] MEDS: BETHANECHOL 25 MG (URECHOLINE) TAB PO SCH ×3 (09:19→18:18)
[2016-07-29] MEDS: meTOprolol TARTRATE 25 MG (LOPRESSOR) TABLET PO SCH ×2 (09:19→18:16)
[2016-07-29] MEDS: SULFAMETHOXAZOLE/TRIMETHOPRIM 800-160 MG (SEPTRA DS) TAB PO SCH ×2 (09:20→20:45)
[2016-07-29] MEDS: FINASTERIDE (PROSCAR) 5 MG TAB PO SCH (09:20)
[2016-07-29] MEDS: NYSTATIN POWDER 100,000 UNITS 15 GM BTL TOP SCH ×4 (09:23→20:45)
[2016-07-29] MEDS: ALBUTEROL/IPRATROPIUM 3MG-0.5MG/3ML (DUONEB) NEB VIAL INH SCH ×3 (09:45→20:25)
[2016-07-29] MEDS: warFARin 5 MG (COUMADIN) TAB PO SCH (16:27)
--- NOTE | 2016-07-29 16:40 | NUR ---
Peripheral IVs to right and left wrists were DCd without Difficulty per physician orders.
--- NOTE | 2016-07-29 18:52 | NUR ---
Repoprt given to Lexi Barth RN. Patient care handed off to oncoming nurse.
[2016-07-29 19:29] VITALS: BP 130/68
--- NOTE | 2016-07-29 20:27 | NUR ---
Pt found lying awake in bed on RA, SPO2 92%, HR 82, RR 14 and non labored with clear and diminished BS before and after Duoneb via SVN MASK.
[2016-07-29] MEDS: HOME MEDICATION PO SCH (20:45)
--- NOTE | 2016-07-30 06:12 | NUR ---
Uneventful shiftman. Pt rests w/o complaints. Denies pain. Wears home dose of 2L oxygen at HS. No needs at this time.
[2016-07-30] MEDS: ALBUTEROL/IPRATROPIUM 3MG-0.5MG/3ML (DUONEB) NEB VIAL INH SCH ×3 (08:02→20:13)
[2016-07-30 08:06] VITALS: BP 134/65
[2016-07-30] MEDS: DOCUSATE SODIUM 100 MG (COLACE) CAP PO PRN (08:19)
[2016-07-30] MEDS: SULFAMETHOXAZOLE/TRIMETHOPRIM 800-160 MG (SEPTRA DS) TAB PO SCH ×2 (08:19→20:40)
[2016-07-30] MEDS: meTOprolol TARTRATE 25 MG (LOPRESSOR) TABLET PO SCH ×2 (08:20→17:17)
[2016-07-30] MEDS: WARFARIN MONITORING XX SCH (08:20)
[2016-07-30] MEDS: FINASTERIDE (PROSCAR) 5 MG TAB PO SCH (08:20)
[2016-07-30] MEDS: PANTOPRAZOLE 40 MG (PROTONIX) TAB PO SCH (08:20)
[2016-07-30] MEDS: BETHANECHOL 25 MG (URECHOLINE) TAB PO SCH ×3 (08:20→17:17)
[2016-07-30] MEDS: NYSTATIN POWDER 100,000 UNITS 15 GM BTL TOP SCH ×4 (08:22→20:10)
--- NOTE | 2016-07-30 08:53 | NUR ---
Pt up in chair, ate 100% breakfast meal. Verbalizes that he hopes to go home today. No IV access. Pt calls appropriately for assist, call light within reach.
[2016-07-30] MEDS: TAMSULOSIN 0.4 MG (FLOMAX) CAP PO SCH (09:20)
[2016-07-30] MEDS ORDERED: NYSTATIN POWDER 100,000 UNITS 15 GM BTL TOP ONE (12:54)
--- NOTE | 2016-07-30 16:14 | NUR ---
Mepilex placed to stage 2 on buttock. Barrier cream applied to upper, medial thighs- reports burning at inner thigh when voiding in urinal. nystatin powder applied to groin and under abdominal folds.
[2016-07-30] MEDS: warFARin 5 MG (COUMADIN) TAB PO SCH (17:17)
--- NOTE | 2016-07-30 18:17 | NUR ---
Pt ate 100% supper meal. Upright in chair, watching TV. Denies needs at this time. Remains on RA. Resp even, nonlab. Calls for assist. call light within reach.
--- NOTE | 2016-07-30 20:10 | NUR ---
Pt. transfers from recliner to bed with use of walker and staff assist x 2; pt. completes task well. Nystatin powder applied to affected areas at groin; large mepilex secure across buttocks; adult pull up on. Pt. is very pleasant and cooperative; denies discomfort currently.
[2016-07-30 20:29] VITALS: BP 142/82
[2016-07-30] MEDS: HOME MEDICATION PO SCH (20:40)
--- NOTE | 2016-07-30 20:40 | NUR ---
Pt. takes PO meds with honey-thickened liquid drink; O2 at 2L via NC on for HS; SizeWise mattress operational and providing comfort; multiple pillows under head with HOB elevated per pt. request. Bed alarm on at HS for safety; call light and H2O within reach.
--- NOTE | 2016-07-31 04:50 | NUR ---
Pt. changed of heavy incontinent void; complete linen change, also. Pt. to weigh chair then recliner with use of walker and staff x 2 as standby assist. Pt. positioned for comfort with legs elevated; lower extremity edema noted at 1+. H2O refreshed/honey thickened; call light in lap. Pt. on room air currently; resp are even and unlabored. Pt. slept in long intervals last night; denies discomfort. Pt. watching tv; isolation restrictions observed.
--- NOTE | 2016-07-31 05:55 | NUR ---
Pullups changed; incontinent void. Pt. does ask for urinal PRN; urinal difficult to place; skin remains excoriated in places; resolving in others with use of nystatin powder. Skin care completed throughout the shift. Pt. slept in a long interval last night; denies discomfort although makes a face with repositioning of legs on recliner. Pt.'s resp are even and unlabored on room air; pt. very pleasant and cooperative. Call light and H2O within reach. Isolation precautions observed.
[2016-07-31 07:57] VITALS: BP 138/70
[2016-07-31] MEDS: PANTOPRAZOLE 40 MG (PROTONIX) TAB PO SCH (08:06)
[2016-07-31] MEDS: BETHANECHOL 25 MG (URECHOLINE) TAB PO SCH ×2 (08:06→12:24)
[2016-07-31] MEDS: meTOprolol TARTRATE 25 MG (LOPRESSOR) TABLET PO SCH (08:06)
[2016-07-31] MEDS: WARFARIN MONITORING XX SCH (08:06)
[2016-07-31] MEDS: FINASTERIDE (PROSCAR) 5 MG TAB PO SCH (08:06)
[2016-07-31] MEDS: SULFAMETHOXAZOLE/TRIMETHOPRIM 800-160 MG (SEPTRA DS) TAB PO SCH (08:06)
[2016-07-31] MEDS: DOCUSATE SODIUM 100 MG (COLACE) CAP PO PRN (08:06)
[2016-07-31] MEDS: NYSTATIN POWDER 100,000 UNITS 15 GM BTL TOP SCH ×2 (08:08→12:26)
--- NOTE | 2016-07-31 08:12 | NUR ---
Pt sitting up in chair, ate 100% breakfast without difficulty, compliant with honey thick liquids. Takes AM meds without c/o. PRN Colace given to prevent constipation. Barrier cream applied to inner thighs along with scheduled Nystatin powder to groin and abd folds as ordered. Pt on RA as he is awake and only wears 2L nc at night while sleeping. Watching tv. Calls appropriately for assist- call light within reach.
[2016-07-31] MEDS: ALBUTEROL/IPRATROPIUM 3MG-0.5MG/3ML (DUONEB) NEB VIAL INH SCH ×2 (08:43→13:53)
--- NOTE | 2016-07-31 08:48 | NUR ---
Pt is awake and alert, tolerated tx well, sitting in recliner with legs elevated, pt is on 2L NC from the night, took to room air for the day. SPO2 96%
[2016-07-31] MEDS: TAMSULOSIN 0.4 MG (FLOMAX) CAP PO SCH (09:40)
--- NOTE | 2016-07-31 15:39 | NUR ---
Report called to MD- given to Gena Gutierrez LPN. Questions answered.
--- NOTE | 2016-07-31 16:15 | NUR ---
Pt dismissed to [facility] at this time via w/c, accompanied by [facility]. Nystatin powder sent in belongs. Script for Bactrim in paperwork envelope as well as 2 bubble pack cards of home medications.
== END 2016-07-31 16:15 | DRG 602 ==
LOC: MED/SURG 13:05
PROVIDERS: ADMIT Internal Medicine; ATTEND Internal Medicine
DX: L02.31 Cutaneous abscess of buttock (principal); J15.6 Pneumonia due to other Gram-negative bacteria; J44.0 Chronic obstructive pulmonary disease with (acute) lower respiratory infection; L03.317 Cellulitis of buttock; L97.519 Non-pressure chronic ulcer of other part of right foot with unspecified severity; N40.1 Benign prostatic hyperplasia with lower urinary tract symptoms; R33.8 Other retention of urine; I10 Essential (primary) hypertension; G40.909 Epilepsy, unspecified, not intractable, without status epilepticus; Z79.01 Long term (current) use of anticoagulants; Z86.711 Personal history of pulmonary embolism
CPT/HCPCS: 36415; 80048; 80053; 80202; 85025; 85610; 86140; 94640; 94760

== ENCOUNTER → 2016-08-02 | Outpatient (REF) | payer MEDICARE ==
[~2016-08-02] MED LIST: AC325T PO; AMOX875T2 PO; BETH25TA11 PO; BISA10SU58 RC; BISM262O PO; BSC10SU PR; BTH25T1 PO; CEFD300C PO; CLOZ100T7 PO; CLOZ25TA3 PO; DIVA250T4 PO; DOCU100C8 PO; DOXY100C PO; DOXY100C42 PO; DUONEB 0.5 MG-33 ML IH; FNST5T PO; FRSM40T PO; IPRA3AMP11 INH; IRON150C14 PO; MAG355OR16 PO; MAGN400O7 PO; METO25TA60 PO; MIRALAX 17 GM P17 GM PO; NFIPRATRNS NS; NST15PW TOP; NYST1POW2 PO; OMEP20CA12 PO; PRED20TA PO; SULF-14ED PO; TAMS-8 PO; WARF4TAB3 PO; WARF6TAB3 PO; WRF3T PO; WRF5T PO
== END ==
LOC: LAB 16:08
PROVIDERS: ATTEND Family Medicine
DX: Z22.322 Carrier or suspected carrier of Methicillin resistant Staphylococcus aureus (principal)
CPT/HCPCS: 87081

== ENCOUNTER → 2016-08-29 | Outpatient (REF) | payer MEDICARE ==
[2016-08-29 11:54] LABS: BASOPHILS % (AUTO) 0 % (0-2); EOSINOPHILS # (AUTO) 0.3 10^3uL; EOSINOPHILS % (AUTO) 4 % (0-4); LYMPHOCYTES # (AUTO) 1.9 X10^3; MEAN CORPUSCULAR HEMOGLOBIN 27.1 PG (26.0-34.0); MEAN CORPUSCULAR VOLUME 87 FL (80-100); MEAN PLATELET VOLUME 9.7 FL (6.0-9.5); MONOCYTES # (AUTO) 0.7 X10^3; MONOCYTES % (AUTO) 9 % (3-11); NEUTROPHILS # (AUTO) 5.3 X10^3; NEUTROPHILS % (AUTO) 64 % (51-67); PLATELET COUNT 250 10^3uL (150-450); WHITE BLOOD COUNT 8.23 10^3uL (4.0-11.0)
[2016-08-29 11:55] LABS: MEAN CORPUSCULAR HGB CONC 31.3 g/dL (31.0-37.0)
== END ==
LOC: LAB 11:26
PROVIDERS: ATTEND Family Medicine
DX: Z51.81 Encounter for therapeutic drug level monitoring (principal); Z79.899 Other long term (current) drug therapy; Z86.711 Personal history of pulmonary embolism
CPT/HCPCS: 85025